=== PATIENT | male | born 1995 | race Two or more races ===

== ENCOUNTER 2016-07-05 14:14 | Emergency (ER) | payer SELFPAY ==
[~2016-07-05] VITALS: Ht 172.7 cm; Wt 95.3 kg
--- NOTE | 2016-07-05 14:20 | NUR ---
PT BIB RA WITH A C/O ETOH. PT IS NOT REALLY SPEAKING. JANNY LEPE. PT IS ON THE MONITOR AND CONTINUOUS PULSE OX.
[2016-07-05 15:10] LABS: BASOPHILS % (AUTO) 0.3 % (0.0-2.0); EOSINOPHILS # (AUTO) 0.3 /CMM (0.0-0.7); EOSINOPHILS % (AUTO) 4.1 % (0.0-6.0); HEMATOCRIT 41 % (39-51); HEMOGLOBIN 13.7 g/dL (13.5-17.5); LYMPHOCYTES # (AUTO) 2.4 /CMM (0.8-4.8); MEAN CORPUSCULAR HEMOGLOBIN 34 PG (26.0-33.0); MEAN CORPUSCULAR HGB CONC 34 g/dl (31.0-36.0); MEAN CORPUSCULAR VOLUME 99 fL (80-96); MONOCYTES # (AUTO) 0.5 /CMM (0.1-1.30); MONOCYTES % (AUTO) 7.2 % (2.0-12.0); NEUTROPHILS # (AUTO) 3.2 /CMM (1.8-8.9); NEUTROPHILS % (AUTO) 50.4 % (43.0-81.0); PLATELET COUNT (AUTO) 112 /CMM (150-450); RDW COEFFICIENT OF VARIATION 13.3 (11.5-15.0); WHITE BLOOD COUNT (AUTO) 6.4 K/uL (4.3-11.0)
[2016-07-05 15:20] LABS: CALCIUM, SERUM 7.7 mg/dL (8.5-10.1); CREATININE 0.8 mg/dL (0.6-1.3); POTASSIUM 3.7 mmol/L (3.5-5.1)
--- NOTE | 2016-07-05 15:30 | NUR ---
IN AND OUT CATH DONE. URINE SAMPLE GIVEN TO LAB
[2016-07-05 15:34] LABS: APPEARANCE,URINE Clear (CLEAR); BILIRUBIN,URINE Negative (NEGATIVE); BLOOD, URINE Trace-lysed Ery/uL (NEGATIVE); COLOR,URINE Light yellow (YELLOW); KETONES,URINE Negative (NEGATIVE); LEUKOCYTE ESTERASE ,URINE Negative (NEGATIVE); NITRITE, URINE Negative (NEGATIVE); PROTEIN,URINE Negative (NEGATIVE); UGLUCOSE Negative (NEGATIVE); UROBILINOGEN,URINE 0.2 EU/dL (0.2)
[2016-07-05 15:34] LABS: ALBUMIN 3.4 g/dL (3.4-5.0); BILIRUBIN,DIRECT 0.1 mg/dL (0.0-0.2); BILIRUBIN,TOTAL 0.3 mg/dL (0.2-1.0); SALICYLATE 1.1 mg/dL (2.8-20.0); TOTAL PROTEIN, SERUM 7.6 g/dL (6.4-8.2)
[2016-07-05 15:42] LABS: ADD URINE CULTURE NO; BACTERIA,URINE None seen /HPF (None Seen); CANNABINOID, URINE NEGATIVE (NEGATIVE); PHENCYCLIDINE SCREEN,URINE NEGATIVE (NEGATIVE); RBC,URINE 0-2 /HPF (0-2); SQUAMOUS EPITHELIAL CELL,UR Rare /HPF (None Seen); WBC,URINE 0-2 /HPF (0-3)
--- NOTE | 2016-07-05 17:12 | NUR ---
PT APPEARS TO BE SLEEPING SOUNDLY. PT IS ON THE MONITOR AND CONTINUOUS PULSE OX.
[2016-07-05 18:10] VITALS: BP 121/79
--- NOTE | 2016-07-05 18:10 | NUR ---
PT AMBULATED TO THE BATHROOM WITH A SLOW STEADY GAIT. PT HAS A SLIGHTLY ATAXIC GAIT. PT THEN AMBULATED BACK TO BED #14.
--- NOTE | 2016-07-05 18:20 | NUR ---
PT REC'D A MEAL TRAY. PT TOLERATED PO WELL. PT AMBULATED WITH A STEADY GAIT TO THE BATHROOM. NO ATAXIA NOTED. RESP EVEN AND UNLABORED. VSS.
--- NOTE | 2016-07-05 18:20 | NUR ---
PT WAS C/O IV BOTHERING HIM. 18G RAC IV REMOVED. Catheter intact and site benign. Pressure and 4x4 applied to site. No bleeding noted.
--- NOTE | 2016-07-05 19:10 | NUR ---
MAKSIM LINN. DR BRAUN IS AWARE.
== END 2016-07-05 19:17 | disposition left against medical advice (07) ==
LOC: ER 14:20
DX: F10.129 Alcohol abuse with intoxication, unspecified (principal); R74.0 Nonspecific elevation of levels of transaminase and lactic acid dehydrogenase [LDH]; R51 Headache
CPT/HCPCS: 36415; 70450-TC; 71010-TC; 80048-TC; 80076-TC; 80305; 81000-TC; 85025-TC; A4606; G0480; G6039-TC; Z7610